=== PATIENT | female | born 1965 | race Caucasian/White ===

== ENCOUNTER 2024-03-18 09:28 | Outpatient (CLI) | payer MEDICARE, MEDICAID, SELFPAY ==
--- NOTE | 2024-03-18 09:32 | CT_ITS ---
FINAL REPORT TECHNIQUE: Axial CT of the abdomen and pelvis, without and with IV contrast. This study was performed with techniques to keep radiation doses as low as reasonably achievable, (ALARA). Individualized dose reduction techniques using automated exposure control or adjustment of mA and/or kV according to the patient''s size were employed. CLINICAL HISTORY: Pelvic/Abdominal Pain,Vaginitis FINDINGS: Abdomen: Lung bases are clear. Liver has an unremarkable CT appearance. The spleen, pancreas and adrenal glands are unremarkable. Patient is status post gastric sleeve procedure. The gallbladder is absent. Precontrast imaging shows no renal stone disease. Postcontrast imaging of the kidneys shows no mass or obstruction. There is no abnormal contrast-enhancement. No bowel obstruction or fluid collection is seen. Pelvis: The appendix is normal. Patient is status post hysterectomy. The bladder is normal. Pelvic bowel loops are unremarkable. No fluid collection or adenopathy is seen. IMPRESSION: Unremarkable exam Reviewed, Interpreted and Dictated by Lokesh Aden MD Transcribed by Fide Abdul Authenticated and [facility]
[2024-03-18] MEDS: BARIUM SULFATE(READI-CAT2);450ML BOTTLE 450 ML PO (09:58)
[2024-03-18] MEDS: SODIUM CHLORIDE 0.9% 10ML SYR (RAD ONLY) 10 ML IV (09:58)
[2024-03-18] MEDS: IOPAMIDOL-370 (76%);100ML BOTTLE 75 ML IV (09:58)
== END 2024-03-18 23:59 | disposition home or self-care (01) ==
LOC: RAD 09:32
PROVIDERS: PCP Family Medicine; Visit Provider Obstetrics & Gynecology
DX: R10.2 Pelvic and perineal pain (principal); R10.9 Unspecified abdominal pain; N76.0 Acute vaginitis
CPT/HCPCS: 74178; Q9967